=== PATIENT | female | born 1985 | race Caucasian/White ===

== ENCOUNTER 2017-05-08 10:45 | Inpatient (IN) | payer OTHER, SELFPAY ==
[2017-05-08] VITALS (19 sets, daily range): BP systolic 105–145; BP diastolic 34–84; PULSE 59–102; RESP 15–18; TEMP 36.1–37.6; O2SAT 95–100; BMI 32.9
--- NOTE | 2017-05-08 | FALS_PTH ---
PATIENT: TASHIA KELLEY LOC: [facility] U#:[id number] AGE/SX: 31/F ROOM: WP006 RE05/08/[address]: Dr. Heidi Harley MD : 1985 BED: 1 DIS: 05/10/2017 SPEC #: [id number] RECD: 05/09/17 13:24 STATUS: JUDITH VAUGHN #: [id number] JANEE: 05/08/17 00:[address]: Heidi King DEPT: SURGICAL PATHOLOGY RECD BY: Sreekanth Kim ENTERED: 05/09/17 13:24 SP TYPE: FALL TUBES OTHR DR: No Primary Care Phys Tissues: Fallopian tube Procedures: Surgery Specimen Level II HEADER OPERATION: Not noted PRE-OP DIAGNOSIS: TISSUE SUBMITTED: Fallopian tube MICROSCOPIC DIAGNOSIS Bilateral fallopian tubes, salpingectomy: Bilateral fallopian tubes including fimbrial ends, no pathologic diagnosis. HORACE:gabriela 05/10/17 MICROSCOPIC DESCRIPTION Slides are reviewed. GROSS DESCRIPTION Received in fixative is one container labeled with the patient's name and designated fallopian tubes, bilateral, right with suture. The specimen consists of two fallopian tubes with an average length of 6 cm and has a maximal diameter of 0.6 cm. Both fallopian tubes have normal fimbriated ends. No mass lesions are identified. Injection Molding Machine Setter sections are submitted in two cassettes as follows: 1 ? right fallopian tube, 2 ? left fallopian tube. / AM:gabriela 05/09/17 TC:4 CPT: 26840 x2
[2017-05-08] MEDS: Lactated Ringers 1,000 ML 125 ML IV (08:17)
[2017-05-08 08:31] LABS: Absolute Lymphocyte Count 1.74 X10^3/ul (0.83-4.51); Absolute Neutrophil Count 7.2 X10^3/uL (2.0-7.7); Basophil# 0.01 X10^3/uL; Basophil% 0.1 % (0-1); Eosinophil# 0.01 X10^3/uL; Eosinophils% 0.1 % (0-5); Hematocrit 39.9 % (37-47); Hemoglobin 13.3 g/dl (12.0-15.0); Lymphocyte # 1.74 X10^3/ul (4.0); Lymphocyte % 18.4 % (19-41); Mean Corp Hgb Conc 33.3 g/gl (32-36); Mean Corpuscular Hgb 28.9 pg (27.0-32.0); Mean Corpuscular Volume 86.6 fL (81-99); Monocyte# 0.51 X10^3/uL; Monocyte% 5.4 % (0-10); Neutrophil # 7.18 X10^3/uL (2.7-7.7); Neutrophil % 75.7 % (47-70); Platelet Count 190 K/mm3 (150-450); RBC Distribution Width CV 14.6 % (11.6-14.6); RBC Distribution Width SD 45.8 fl (35.1-43.9); Red Blood Count 4.61 M/mm3 (4.2-5.4); White Blood Count 9.5 K/mm3 (4.4-11.0)
[2017-05-08 08:32] LABS: POSITIVE COUNT NO; POSITIVE DIFFERENTIAL NO; POSITIVE MORPHOLOGY NO
[2017-05-08 08:38] LABS: International Normalized Ratio 0.9; Prothrombin Time (Protime)PT. 11.7 SECONDS (11.7-14.9)
[2017-05-08 08:39] LABS: Partial Thromboplast Time 27.4 Seconds (24.1-36.2)
[2017-05-08] MEDS: Sodium Citrate/Citric Acid 30 ML UDC PO (11:49)
[2017-05-08] MEDS: Cefazolin 2 GM in 0.9% Normal Saline 100 ML IV (11:49)
[2017-05-08] MEDS: Lactated Ringers 1,000 ML 999 ML IV (11:50)
[2017-05-08] MEDS: Oxytocin 30 units/NS 500 ml 30 UNITS/500 ML IV.SOLN 167 UNITS IV (12:27)
[2017-05-08] MEDS: Ondansetron 4 MG/2 ML Vial IV (12:40)
--- NOTE | 2017-05-08 13:43 | PCM.OB.CSR ---
- Problem List (1) delivery delivered Status: Acute (2) 38 weeks gestation of Status: Acute (3) Sterilization Status: Acute Delivery Classification: CHENG Final VEGA: 05/18/17 Gestational age: 39 Weeks and 4 Days Indications: Ms. Lauren is a 31 year old 2 para 1 at 38 6/7 weeks gestation with h/o prior section who presents in latent labor. She progressed from 1cm to 3cm dilation over observation. She planned for repeat section. Indications for : Repeat Elective , Desires elective sterilization Description of Procedure: PROCEDURE PERFORMED: 1. Repeat section 2. Bilateral salpingectomy The patient was taken to the operating room and spinal analgesia was administered. She is placed in a dorsal supine position with left lateral tilt. The perineum and abdomen were prepped and draped in sterile fashion. And the spinal was found to be adequate. A Pfannenstiel incision was made using a scalpel and brought down to incise the subcutaneous tissue and rectus fascia at the midline. Subcutaneous tissue was bluntly dissected off the fascia laterally. The fascial incision was dissected laterally and cephalad using curved Barraza scissors. The superior leaflet of the rectus fascia was grasped using Jacquelin clamps and bluntly dissected and sharply dissected from the underlying rectus muscle. In a similar fashion the inferior rectus fascia was dissected from the underlying muscle. The rectus muscles were bluntly at the midline. The peritoneum was identified and entered [sharply]. The bladder blade was placed into the abdomen and the vesicouterine peritoneal fold identified. The fold was incised and a bladder flap created. Bladder blade was then repositioned to the abdomen. A low transverse hysterotomy was made using the [Metzenbaum scissors] to level of the membranes. The hysterotomy was extended bluntly cephalad and caudad. The membranes were then ruptured revealing clear fluid. The head was elevated and brought to the level of the hysterotomy and the infant delivered revealing vigorous [male] . The cord was doubly clamped and cut after 30 seconds. The was passed to awaiting [nursery personnel]. The placenta was [expressed] from the uterus and appeared intact on inspection. The uterus was cleared of debris. The uterus and adnexae were exteriorized. The hysterotomy was then repaired using 0 Vicryl running lock suture. A second imbricating layer was also placed for additional hemostasis. A rent was made in an avascular portion of the right mesosalpinx and the proximal and distal portions of the mesosalpinx were Chula clamped beneath the tube. The tube was excised and the pedicles were doubly suture liated with 0 plaingut. In similar fashion, left salpingectomy was also performed. The hysteroctomy was again inspected and hemostatic. The bladder blade was removed and The uterus and adnexae were returned to the abdomen. The anterior cul-de-sac was cleared of debris. The peritoneum and rectus muscles were reapproximated using 2-0 Vicryl running suture. The rectus fascia was closed using 0 Vicryl running suture. The subcutaneous tissue was sponge irrigated and small capillary bleeding controlled using the Bovie device. The subcutaneous tissue was reapproximated using 2-0 Vicryl. The skin was closed using 4-0 Monocryl subcuticularly by the WASHER AND CAPPER MACHINE OPERATOR under my supervision. This was followed by Cavilon and a Mepilex occlusive dressing was placed over the incision. The fundus was firm. The patient was then transferred to the recovery room without complication. Sponge, instrument, and needle counts were correct ?2. I was present for the entire procedure. Amniotic Membrane Rupture Type: Artificial Amniotic Fluid Description: Clear Placenta Disposition: [facility] Drain: [place] to straight drain Cord Entanglement: None Cord Vessel Description: 3 Vessels Esitmated Blood Loss (ml): 700 Infant Gender: Male (1 minute): 8 (5 minute): 9 Delayed cord clamping: Yes Pre-op Antibiotic Given: Ancef 2 grams IV x1 Pt instructed on risks of surgery: Bleeding, Anesthesia Risks, Infection, Permanency, Failure Rate of 1 to 2%, Injury to surrounding structure(s) including bowel and bladder, Availability of other non-permanent control options Complications: None - Admit VTE Documentation VTE Present on Admission: No VTE Mechan Device Prophylaxis: SCD's VTE Pharm Prophylaxis ordered?: No
[2017-05-08] MEDS: oxyCODONE 5 MG Tablet PO (23:51)
[2017-05-09] VITALS (9 sets, daily range): BP systolic 114–125; BP diastolic 62–81; PULSE 69–108; RESP 15–18; TEMP 36.7–37.4; O2SAT 95–99
[2017-05-09 05:44] LABS: Hematocrit 35.4 % (37-47); Hemoglobin 11.8 g/dl (12.0-15.0); Mean Corp Hgb Conc 33.3 g/gl (32-36); Mean Corpuscular Hgb 29.1 pg (27.0-32.0); Mean Corpuscular Volume 87.2 fL (81-99); Mean Platelet Vol. 10.6 fl (6.2-12.0); Platelet Count 158 K/mm3 (150-450); RBC Distribution Width CV 14.7 % (11.6-14.6); RBC Distribution Width SD 46.9 fl (35.1-43.9); Red Blood Count 4.06 M/mm3 (4.2-5.4); White Blood Count 10.7 K/mm3 (4.4-11.0)
[2017-05-09 05:53] LABS: Scan Indicated on CBC? Y/N NO
[2017-05-09] MEDS: oxyCODONE 5 MG Tablet PO ×5 (07:46→21:28)
[2017-05-09] MEDS: Senna/Docusate Sodium 1 Tablet PO (07:46)
--- NOTE | 2017-05-09 09:03 | PCM.PN.OB ---
Subjective: Patient without complaints. Tolerating diet well. Denies flatus. Pain well controlled. - Physical Exam Vital Signs AF, VSS Temp Pulse Resp BP Pulse Ox 98.2 F 93 16 114/69 97 05/09/17 08:00 05/09/17 08:00 05/09/17 08:00 05/09/17 08:00 05/09/17 05:00 Oxygen Delivery Method Room Air Weight: 174 lb 6.17 oz Body Mass Index (BMI) 32.9 Intake and Output for Last 24 Hours 05/07/17 05/08/17 05/09/17 23:59 23:59 23:59 Intake Total 3137 / 3137 1800 / 1800 Output Total 2200 / 2200 2500 / 2500 Balance 937 / 937 -700 / -700 Laboratory Tests Past 24 Hrs 05/08/17 05/09/17 08:20 05:00 WBC 10.7 RBC 4.06 L Hgb 11.8 L Hct 35.4 L MCV 87.2 MCH 29.1 MCHC 33.3 RDW 14.7 H RDW Differential 46.9 H Plt Count 158 MPV 10.6 Blood Type O POSITIVE Antibody Screen NEGATIVE Wound is clean, dry, intact. Good urine output. Globin okay. Assessment/Plan Doing well. Continuing present care.
[2017-05-09] MEDS: Hydrocortisone 2.5% Crm 1 APPLIC TOPICAL (12:08)
[2017-05-09] MEDS: Ibuprofen 600 MG Tablet PO (22:55)
[2017-05-10 01:00] VITALS: BP 129/85; PULSE 98; RESP 16; TEMP 36.4; O2SAT 95
[2017-05-10] MEDS: Acetaminophen 500 MG Tablet 1000 MG PO (02:40)
[2017-05-10] MEDS: Ibuprofen 600 MG Tablet PO (07:47)
[2017-05-10 08:15] VITALS: BP 109/81; PULSE 89; RESP 16; TEMP 36.2
--- NOTE | 2017-05-10 09:07 | DCINST_ITS ---
Discharge Diet: No Restrictions Discharge Activity: Return to Normal Activity, May not drive while taking narcotic pain medications., May Shower May resume sexual activity in: 6 weeks Lifting Restrictions: 10 lb Call your doctor if your incision/area has: Continuous Slow Oozing, Sudden Increased Bleeding, Increased Pain/ Swelling, Increased Redness, Foul Smelling Discharge Call your doctor if you observe: Fever of 101 or Higher, Inability to urinate, Using more than one pad per hour, Shortness of breath, Chest pain, Calf discomfort, Uncontrolled pain Suture Line Care: Avoid Pulling/Pushing Cleanse incision/area with: Soap & Water Additional Instructions: If you experience any of the following, contact your healthcare provider. * Bleeding that soaks a pad every hour for 2 hours * Fever 100.4 or higher * Unrelieved incision or abdominal pain * Swelling, redness, discharge or bleeding from your incision or episiotomy site * Your incision begins to separate * Problems urinating (including inability to urinate or burning while urinating) . * Visual changes * Severe headache * Flu-like symptoms * Pain or redness in one of both of your breasts * Pain, warmth, tenderness or swelling in your legs, especially the calf area * Frequent nausea and vomiting * Symptoms of depression or anxiety If you experience any of the following, call 911 or go to the nearest Emergency Room. * Chest pain * Problems breathing * Seizure activity * Partial or complete paralysis of a body part, slurred speech, weakness or drooping of the face, or a sudden inability to walk or hold your balance Allergies/Adverse Reactions: Allergies No Known Allergies Allergy (Verified 05/08/17 08:45) Medications to take at Discharge Vits [Prenatabs FA ] 1 tablet PO DAILY 06/19/13 Ibuprofen 800 mg PO TID PRN #30 tab 05/10/17 Oxycodone [Oxyir] 5 - 10 mg PO Q4H PRN PRN 3 Days #30 tablet 05/10/17 Senna/Docusate Sodium [Senokot-S] 1 - 2 tab PO DAILY PRN #60 tablet 05/10/17 Sertraline HCl [Zoloft] 25 mg PO DAILY #30 tab 05/10/17 The following prescriptions were given: Sertraline HCl [Zoloft] 25 mg PO DAILY #30 tab Ibuprofen 800 mg PO TID PRN #30 tab PRN Reason: Pain Follow-Up: Call to make an appointment with your doctor for an incision check in 1-2 weeks. You will also need a 6 week post- follow up appointment. Please Follow Up With: Rubi Alvarado MD When: 7-10 days Primary Care Physician: Care Physician,No Primary [Primary Care Provider] -
[2017-05-10] MEDS: oxyCODONE 5 MG Tablet PO (09:54)
[2017-05-10] MEDS: Senna/Docusate Sodium 1 Tablet PO (09:55)
[2017-05-10 13:05] VITALS: BP 111/70; PULSE 80; RESP 16; TEMP 36.9
[2017-05-10 13:35] VITALS: BP 111/70; PULSE 80; RESP 16; TEMP 36.9
--- NOTE | 2017-05-10 16:31 | NURSING ---
Steri Strips applied to pt incision per orders from Dr. Hirsch.
[2017-05-11 15:04] LABS: Pathology Specimen OB SEE PATHOLOGY REPORT
== END 2017-05-10 13:35 | disposition home or self-care (01) | DRG 766 ==
LOC: WPOUT 10:51
PROVIDERS: Admitting Provider Obstetrics & Gynecology; Visit Provider Obstetrics & Gynecology
DX: O34.211 Maternal care for low transverse scar from previous cesarean delivery (principal); Z30.2 Encounter for sterilization; Z37.0 Single live birth; Z3A.38 38 weeks gestation of pregnancy
CPT/HCPCS: 59050; 85025; 85027; 85610; 85730; 86850; 86900; 88302; 99218; J7120; G0378; J2405

== ENCOUNTER 2017-05-16 12:55 | Outpatient (CLI) | payer OTHER, SELFPAY | END 2017-05-16 13:55 | disposition home or self-care (01) | LOC: WPOUT 13:02 → WP 13:04 | PROVIDERS: Visit Provider Pediatrics | DX: Z39.1 Encounter for care and examination of lactating mother (principal) | CPT/HCPCS: 96152 ==

== ENCOUNTER → 2017-06-01 21:43 | Outpatient (CLI) | payer OTHER, SELFPAY ==
[2017-06-07 15:24] LABS: HPV Reflexed? NOT INDICATED
== END ==
PROVIDERS: Visit Provider Obstetrics & Gynecology
DX: Z12.4 Encounter for screening for malignant neoplasm of cervix (principal)
CPT/HCPCS: 88175; G0145

== ENCOUNTER → 2018-07-22 | Outpatient (CLI) | payer OTHER, SELFPAY ==
[2018-07-29 15:17] LABS: HPV Reflexed? NOT INDICATED
== END | disposition home or self-care (01) ==
LOC: LABSPEC 11:26
PROVIDERS: Visit Provider Obstetrics & Gynecology
DX: Z12.4 Encounter for screening for malignant neoplasm of cervix (principal)
CPT/HCPCS: 88175; G0145